=== PATIENT | male | born 1935 | race Caucasian/White ===

== ENCOUNTER → 2016-11-28 | Outpatient (CLI) | payer OTHER | LOC: CIMAGING 08:34 | PROVIDERS: ATTEND Internal Medicine Cardiovascular Disease | DX: J84.9 Interstitial pulmonary disease, unspecified (principal); Z79.899 Other long term (current) drug therapy | CPT/HCPCS: 71020-PO ==

== ENCOUNTER 2017-06-16 08:17 | Day surgery (SDC) | payer OTHER ==
[2017-06-16] MEDS ORDERED: DIAZEPAM 5 MG TAB PO ONE (08:19)
[2017-06-16] MEDS ORDERED: ceFAZolin 2 GM/SWFI 2 GM/20 ML SYR IVP ONE ×2 (08:19→09:00)
[2017-06-16] MEDS ORDERED: BACITRACIN IRRIGATION/NS 50,000 UNITS/1,000 ML BTL IRR ONE (08:19)
[2017-06-16] MEDS ORDERED: NS 1,000 ML IV ONE (08:19)
[2017-06-16] MEDS ORDERED: diphenhydrAMINE 25 MG CAP PO ONE (08:19)
--- NOTE | 2017-06-16 08:48 | CPEKG ---
Heart Rate: 78 RR Interval: 769 P-R Interval: 224 QRSD Interval: 168 QT Interval: 476 QTC Interval: 543 P [place]: 39 QRS [place]: -13 T Wave [place]: 123 EKG Severity - ABNORMAL ECG - EKG Impression: SINUS RHYTHM EKG Impression: FIRST DEGREE AV BLOCK EKG Impression: IVCD, CONSIDER ATYPICAL LBBB Electronically Signed By: Tee Kimball 17-Jun-2017 23:02:50
[2017-06-16 09:08] LABS: % IMMATURE GRANULYOCYTES 1.5 % (0.0-1.1); ABSOLUTE IMMATURE GRANULOCYTES 0.09 10^3/uL (0.00-0.10); ADD DIFF? NO; ADD MORPH? NO; ADD SCAN? NO; ATYPICAL LYMPHOCYTE FLAG 20 (0-99); FRAGMENT RBC FLAG 0 (0-99); HEMATOCRIT 37.8 % (40.0-51.0); HEMOGLOBIN 12.8 g/dL (13.7-17.5); LEFT SHIFT FLG 10 (0-99); LIPEMIA HEMOLYSIS FLAG 90 (0-99); MEAN CELL HEMOGLOBIN 34.8 pg (27.9-34.1); MEAN CELL HEMOGLOBIN CONCENTR. 33.9 g/dL (32.4-36.7); MEAN CELL VOLUME 102.7 fL (81.5-99.8); MEAN PLATELET VOLUME 10.4 fL (8.7-11.7); PLATELET CLUMPS FLAG 10 (0-99); PLATELET COUNT 150 10^3/uL (150-400); RED BLOOD CELL COUNT 3.68 10^6/uL (4.40-6.38); RED CELL DISTRIBUTION WIDTH 13.8 % (11.5-15.2)
[2017-06-16 09:27] LABS: INR 1.65 (0.83-1.16); PROTIME(PATIENT) 19.6 SEC (12.0-15.0)
[2017-06-16 09:32] LABS: ANION GAP 10 mEq/L (8-16); CALCIUM 8.7 mg/dL (8.5-10.4); CARBON DIOXIDE 27 mEq/l (22-31); CHLORIDE 106 mEq/L (97-110); GLOMERULAR FILTRATION RATE 32; GLUCOSE 97 mg/dL (70-100); POTASSIUM 4.3 mEq/L (3.5-5.2); SODIUM 143 mEq/L (134-144)
[2017-06-16] MEDS ORDERED: MIDAZOLAM 2 MG/2 ML VIAL ONE (09:45)
[2017-06-16] MEDS ORDERED: fentaNYL 100 MCG/2 ML INJ ONE (09:45)
[2017-06-16] MEDS ORDERED: LIDO/EPI 1% **for epidural** 30 ML SDV ONE (09:45)
[2017-06-16] MEDS ORDERED: LIDOCAINE 1% 300 MG/30 ML SDV ONE (09:45)
[2017-06-16] MEDS ORDERED: BUPIVACAINE 0.5% 30 ML SDV ONE (09:45)
--- NOTE | 2017-06-16 09:55 | PDHPUP ---
History & Physical Update H&P update statement: This history and physical update is based on an assessment of the patient which was completed after admission or registration (within 24 hours), but prior to the surgery/procedure. H&P update: H&P reviewed & patient examined, no change in patient's condition since H&P completed (Review of patient's medications and med reconciliation showed that he took Eliquis yesterday. This is an elective procedure. Would suggest we wait 2 days off of anticoagulants before proceeding with implantation of a ICD. I have discussed this with the patient his family. Will reschedule in for .)
--- NOTE | 2017-06-16 10:01 | PDCTREPORT ---
Cardiothoracic Procedure Rpt Cardiothoracic Procedure Report: Procedure: ICD. Device implantation was canceled secondary to anticoagulation.
== END 2017-06-16 10:10 | disposition home or self-care (01) ==
LOC: FCATH 08:17
PROVIDERS: ATTEND Internal Medicine Interventional Cardiology
DX: Z53.8 Procedure and treatment not carried out for other reasons (principal); Z79.01 Long term (current) use of anticoagulants
CPT/HCPCS: J0690; J2250; J3010

== ENCOUNTER 2017-06-18 06:37 | Observation (INO) | payer OTHER ==
[2017-06-18] MEDS ORDERED: BACITRACIN IRRIGATION/NS 50,000 UNITS/1,000 ML BTL IRR ONE (06:44)
[2017-06-18] MEDS ORDERED: NS 1,000 ML IV ONE (06:44)
[2017-06-18] MEDS ORDERED: DIAZEPAM 5 MG TAB PO ONE (06:44)
[2017-06-18] MEDS ORDERED: ceFAZolin 2 GM/SWFI 2 GM/20 ML SYR IVP ONE (06:44)
[2017-06-18] MEDS ORDERED: diphenhydrAMINE 25 MG CAP PO ONE (06:44)
--- NOTE | 2017-06-18 07:02 | CPEKG ---
Heart Rate: 77 RR Interval: 779 P-R Interval: 240 QRSD Interval: 170 QT Interval: 456 QTC Interval: 517 P [place]: 73 QRS [place]: -7 T Wave [place]: 135 EKG Severity - ABNORMAL ECG - EKG Impression: SINUS RHYTHM EKG Impression: FIRST DEGREE AV BLOCK EKG Impression: LEFT BUNDLE BRANCH BLOCK Electronically Signed By: Tee Kimball 19-Jun-2017 20:26:08
[2017-06-18 07:15] LABS: % IMMATURE GRANULYOCYTES 0.2 % (0.0-1.1); ABSOLUTE IMMATURE GRANULOCYTES 0.01 10^3/uL (0.00-0.10); ADD DIFF? NO; ADD MORPH? NO; ADD SCAN? NO; ATYPICAL LYMPHOCYTE FLAG 0 (0-99); FRAGMENT RBC FLAG 0 (0-99); HEMATOCRIT 36.2 % (40.0-51.0); HEMOGLOBIN 12.4 g/dL (13.7-17.5); LEFT SHIFT FLG 0 (0-99); LIPEMIA HEMOLYSIS FLAG 90 (0-99); MEAN CELL HEMOGLOBIN 35.3 pg (27.9-34.1); MEAN CELL HEMOGLOBIN CONCENTR. 34.3 g/dL (32.4-36.7); MEAN CELL VOLUME 103.1 fL (81.5-99.8); MEAN PLATELET VOLUME 10.3 fL (8.7-11.7); PLATELET CLUMPS FLAG 0 (0-99); PLATELET COUNT 145 10^3/uL (150-400); RED BLOOD CELL COUNT 3.51 10^6/uL (4.40-6.38)
[2017-06-18 07:24] LABS: INR 1.15 (0.83-1.16); PROTIME(PATIENT) 14.9 SEC (12.0-15.0)
[2017-06-18 07:36] LABS: ANION GAP 10 mEq/L (8-16); CALCIUM 8.8 mg/dL (8.5-10.4); CARBON DIOXIDE 26 mEq/l (22-31); CHLORIDE 104 mEq/L (97-110); CREATININE 2.3 mg/dL (0.7-1.3); GLOMERULAR FILTRATION RATE 27; GLUCOSE 97 mg/dL (70-100); SODIUM 140 mEq/L (134-144)
[2017-06-18] MEDS ORDERED: BUPIVACAINE 0.5% 30 ML SDV ONE (07:40)
[2017-06-18] MEDS ORDERED: fentaNYL 100 MCG/2 ML INJ ONE ×2 (07:40→09:08)
[2017-06-18] MEDS ORDERED: MIDAZOLAM 2 MG/2 ML VIAL ONE ×2 (07:40→09:08)
[2017-06-18] MEDS ORDERED: LIDOCAINE 1% 300 MG/30 ML SDV ONE (07:40)
[2017-06-18] MEDS ORDERED: LIDO/EPI 1% **for epidural** 30 ML SDV ONE (07:40)
[2017-06-18] MEDS ORDERED: IOPAMIDOL (ISOVUE-300) 100 ML BTL ONE (07:41)
--- NOTE | 2017-06-18 08:40 | PDHPUP ---
History & Physical Update H&P update statement: This history and physical update is based on an assessment of the patient which was completed after admission or registration (within 24 hours), but prior to the surgery/procedure. H&P update: H&P reviewed & patient examined, no change in patient's condition since H&P completed (Off anticoagulation over 48 hours. Elevated creatinine noted.)
--- NOTE | 2017-06-18 08:41 | PDPROPOC ---
Sedation Plan of Care Sedation Plan of Care: vital signs stable, mental status noted, patient educated of risks, benefits, alternatives, patient can tolerate sedation ASA Classification: ASA 3 Planned drugs: fentanyl, midazolam Mallampati Score: Class 2 Mallampati Reference Image: Patient passed 3-3-2 rule?: Yes
--- NOTE | 2017-06-18 10:44 | CPEKG ---
Heart Rate: 64 RR Interval: 938 P-R Interval: 232 QRSD Interval: 172 QT Interval: 516 QTC Interval: 533 P [place]: 21 QRS [place]: 7 T Wave [place]: 84 EKG Severity - ABNORMAL ECG - EKG Impression: SINUS RHYTHM EKG Impression: FIRST DEGREE AV BLOCK EKG Impression: LEFT BUNDLE BRANCH BLOCK Electronically Signed By: Tee Kimball 19-Jun-2017 20:25:59
[2017-06-18] MEDS: CARVEDILOL 6.25 MG TAB PO SCH (18:27)
--- NOTE | 2017-06-18 19:50 | CPIP ---
[f rep st] INVASIVE CARDIAC PROCEDURE DATE OF PROCEDURE: 06/18/2017 NAME OF PROCEDURE: Implantation of a dual-chamber ICD. INDICATIONS: Primary prevention for an ejection fraction of 30%. I am asked by my partner, Dr. Carlos Alberto Tafoya, to implant a dual-chamber ICD. DESCRIPTION OF PROCEDURE: The patient was brought to the cardiac catheter builder in the fasting state. The left subclavian fossa was sterilely prepped and draped. The skin was infiltrated with 2% Xylocaine. Using a 10 blade, an incision was made 2 cm below the clavicle. Using a combination of sharp and b alison dissection, the Bovie catheter pacemaker pocket was created and a bacitracin-soaked sponge was p laced in the pocket. Using 18-gauge percutaneous needle, guidewires were advanced into the right hea rt x2. Using a 7-Spanish safety sheath, lead was advanced into the RV apex. Using a 6-Spanish safety sheath, a lead was implanted in the right atrial appendage. Appropriate sensitivities and thresholds were confirmed. The sheaths were both torn away and the leads were secured to the fascia using 0 Et hibond x2. Bacitracin-soaked sponge was removed from the pocket. Was copiously irrigated. A genera tor was delivered to the field and attached to the leads. Set-screws were tightened per [employer] sta ndards. The entire system was coiled into the pocket. The pocket was closed using 3-0 Vicryl. The incision was closed using a 3 layer closure with 2-0, 3-0 Vicryl and Stratafix sutures for the skin. A pressure dressing was applied. The patient was taken to recovery for continued care. TECHNICAL DIFFICULTIES: None. COMPLICATIONS: None. IMAGING: Chest x-ray pending. FINDINGS: The device is Priyankaify Lam GAFFNEY, serial #[id number]. The defibrillator pacing lead is a Dura ta, serial number [id number]. The atrial lead was a Tendril STS, serial number [id number]. Atrial capture was at 1 V with a pulse of 0.5 millisecond. Sensing was 3.2 mV with an impedance of 4 36 ohms. Right ventricular capture was at 0.6 V with a pulse of 0.5 milliseconds. Sensing was 12 mV with an impedance of 789 ohms. With 10 V stimulation, there was no phrenic nerve stimulation on eit her the atrial or ventricular lead. FINAL DIAGNOSIS: Successful implantation of a dual-chamber implantable cardioverter-defibrillator. Chest x-ray pending. /[id number]/MODL
[2017-06-18] MEDS ORDERED: ASPIRIN 81 MG CHEWABLE TAB PO SCH (21:00)
[2017-06-18] MEDS ORDERED: ATORVASTATIN CALCIUM 40 MG TAB PO SCH (21:00)
[2017-06-19 08:12] VITALS: O2SAT 94
[2017-06-19] MEDS ORDERED: CHOLECALCIFEROL VIT D3 1,000 UNITS TAB PO SCH (09:00)
[2017-06-19] MEDS ORDERED: FUROSEMIDE 40 MG TAB PO SCH (09:00)
[2017-06-19] MEDS ORDERED: FERROUS SULFATE 325 MG TAB PO SCH (09:00)
[2017-06-19] MEDS ORDERED: AMIODARONE HCL 200 MG TAB PO SCH (09:00)
[2017-06-19] MEDS: CARVEDILOL 6.25 MG TAB PO SCH (09:10)
[2017-06-19 11:11] VITALS: BP 104/63; PULSE 78; RESP 16; TEMP 98.2
--- NOTE | 2017-06-19 16:51 | ASDISCHSUM ---
Discharge Information Plan Status:Home with No Needs Medically Cleared to Leave:06/18/2017 Discharge Date:06/19/2017 03:38 PM CM D/C Disposition: ADT D/C Disposition:Home, Routine, Self-Care Projected Discharge Date:06/19/2017 12:00 AM Transportation at D/C: Discharge Delay Reason: Follow-Up Date:06/19/2017 12:00 AM Discharge Slot: Final Diagnosis: Placement Information Patient Contact Information Contact Name:ROB Relationship: Address:[address] Work Phone: City:[place] [facility] Phone: State/Zip Code:[place] [address] Email: Financial Information Financial Class:Medicare Advantage Plans Primary Plan Desc:[employer] P[employer] MEDICARE Primary Plan Number:[id number] Secondary Plan Desc: Secondary Plan Number: Assessment Information Intervention Information Intervention Type:*WARD-Signed Date of Service:06/19/2017 10:18 AM Patient Type:Observation Staff Member:Dianna Neumann Hours: Discipline: Severity: Comment:
[2017-06-19] MEDS ORDERED: TAMSULOSIN HCL 0.4 MG CAP PO SCH (21:00)
[2017-06-19] MEDS ORDERED: APIXABAN 2.5 MG TAB PO SCH (21:00)
--- NOTE | 2017-06-20 06:03 | GDS ---
[f rep st] DISCHARGE SUMMARY ADMIT DIAGNOSES: 1. Planned placement of dual-chamber ICD. 2. Cardiomyopathy with ejection fraction of 30%. DISCHARGE DIAGNOSES: 1. Status post successful placement of dual-chamber ICD with no complications. 2. Cardiomyopathy with ejection fraction of 30%. CURRENT HOSPITALIZATION: This gentleman is a patient of Dr. Carlos Alberto Tafoya who asked Dr. Jacky turner to place a dual-chamber ICD due to his cardiomyopathy with now ejection fraction of 30%. He was ta shani to the cardiac laborer [place] on 06/18/2017, where Dr. Morales was able to successfully place the dual chamber pacemaker ICD with no complications. Left subclavian fossa was utilized as site. The devic e is a Gaye Fritz DR, serial #[id number]. Defibrillator pacing lead is a Durata, serial number [id number]. Atrial lead Tendril STS, serial number [id number]. Atrial capture is at 1 V with a pause of 0.5 milliseconds. Sensing 3.2 mV with an impedance of 436 ohms . Right ventricular capture was at 0.65 ohms with a pulse of 0.5 milliseconds. Sensing 2 mV with an impedance of 789 ohms. With 10 V stimulation, no phrenic nerve stimulation on either the atrial or ventricle lead. Post pacemaker placement he was taken to PCU for overnight observation where he has done well. His p acemaker site is intact with no bleeding, induration, hematoma or pain. His chest x-ray was done mark wing no pneumothorax. He has been up ambulating with no problems. At this time, he currently is sta ble for discharge. MEDICATIONS: He has no known allergies. He will go home on herbal supplements 1 daily, vitamin D 10 00 units daily, Lasix 40 mg daily, ferrous sulfate 325 mg daily, Flomax 0.4 mg at bedtime, Eliquis 2. 5 mg twice daily, Coreg 6.25 mg twice daily, Lipitor 40 mg at bedtime, aspirin 81 mg at bedtime, amio darone 200 mg daily. On day of discharge, his blood pressure was 104/63, heart rate 68, oxygen saturation 94% on room air. EKG showed normal sinus rhythm with premature atrial PACs. Atrioventricular conduction delay noted . Heart rate regular. No murmurs, rubs or gallops. Lungs sounds are clear to auscultation. No whe ezes, rales, or rhonchi. Pacer site is intact with no bleeding or induration. Mild swelling around site. No peripheral edema with pulses 2+ bilaterally. DISCHARGE PLAN: He will follow up in pacemaker clinic for device check and wound check in 1 week. H e will follow up with Dr. Carlos Alberto Tafoya in 3-4 weeks. Pacemaker precautions were reviewed with him verbally and written information was given for home refe rral. Should he have any problems he is asked to call [facility]. At this time, he currently is stable for discharge. /[id number]/MODL
[2017-06-20] MEDS ORDERED: Herbals/Supplements -Info Only PO SCH (09:00)
== END 2017-06-19 15:38 | disposition home or self-care (01) ==
LOC: FCATH 06:37 → F2W 10:27
PROVIDERS: ADMIT Internal Medicine Interventional Cardiology; ATTEND Internal Medicine Interventional Cardiology
PROC: 0JH608Z Insertion of Defibrillator Generator into Chest Subcutaneous Tissue and Fascia, Open Approach (ICD-10-PCS; principal; 2017-06-18)
PROC: 02H63KZ Insertion of Defibrillator Lead into Right Atrium, Percutaneous Approach (ICD-10-PCS; principal; 2017-06-18)
PROC: 02HK3KZ Insertion of Defibrillator Lead into Right Ventricle, Percutaneous Approach (ICD-10-PCS; principal; 2017-06-18)
DX: I42.9 Cardiomyopathy, unspecified (principal); I25.10 Atherosclerotic heart disease of native coronary artery without angina pectoris; I48.91 Unspecified atrial fibrillation; E78.5 Hyperlipidemia, unspecified; N28.9 Disorder of kidney and ureter, unspecified; Z79.01 Long term (current) use of anticoagulants; Z95.5 Presence of coronary angioplasty implant and graft
CPT/HCPCS: 33249; 71010; 71020; 93005; C1721; C1777; C1898; G0378; J0690; J2250; J3010; Q9967

== ENCOUNTER → 2017-12-14 | Outpatient (CLI) | payer OTHER | LOC: CIMAGING 14:01 | PROVIDERS: ATTEND Family Medicine | DX: R05 Cough (principal); J98.4 Other disorders of lung | CPT/HCPCS: 71046-PO ==

== ENCOUNTER → 2017-12-22 | Outpatient (CLI) | payer OTHER | LOC: CIMAGING 10:30 | PROVIDERS: ATTEND Family Medicine | DX: J84.9 Interstitial pulmonary disease, unspecified (principal); T46.2X1A Poisoning by other antidysrhythmic drugs, accidental (unintentional), initial encounter | CPT/HCPCS: 71250-PO ==